=== PATIENT | male | born 1990 | race Caucasian/White ===

== ENCOUNTER 2019-03-22 17:44 | Outpatient (CLI) | payer MEDICAID, SELFPAY ==
[2019-03-22 18:50] LABS: BUN 7 mg/dL (7-18); CREATININE 0.97 mg/dL (0.70-1.30); Calcium 9.3 mg/dL (8.5-10.1); Chloride 104 mmol/L (98-107); Glucose 78 mg/dL (70-100); Potassium 3.8 mmol/L (3.5-5.1); Sodium 142 mmol/L (136-145)
== END 2019-03-22 18:04 ==
PROVIDERS: PCP Nurse Practitioner Family; Visit Provider Nurse Practitioner Family
DX: I10 Essential (primary) hypertension (principal)
CPT/HCPCS: 80048

== ENCOUNTER 2019-09-08 03:20 | Emergency (ER) | payer MEDICAID, SELFPAY ==
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
[2019-09-08 03:18] VITALS: BP 130/83; PULSE 83; RESP 16; TEMP 36.7; O2SAT 96
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
--- NOTE | 2019-09-08 04:30 | NUR.NOTE ---
Plan for DC home,. pt has no ride. Drowsy, arousable to voice. Pt to wait in room until am to obtain ride.
--- NOTE | 2019-09-08 06:42 | NUR.NOTE ---
Pt more alert, provided with baltazar pimentel. sitting up in bed, answering questions.
[2019-09-08] MEDS: Ibuprofen 600 MG TAB PO (06:58)
[2019-09-08] MEDS: Acetaminophen 500 MG TAB 1000 MG PO (06:58)
== END 2019-09-08 07:00 | disposition home or self-care (01) ==
LOC: ER 04:33
PROVIDERS: Emergency Provider Emergency Medicine; PCP Nurse Practitioner Family
DX: S00.83XA Contusion of other part of head, initial encounter (principal); Y08.02XA Assault by strike by baseball bat, initial encounter; S71.132A Puncture wound without foreign body, left thigh, initial encounter; X99.8XXA Assault by other sharp object, initial encounter; Y07.04 Female partner, perpetrator of maltreatment and neglect; I10 Essential (primary) hypertension
CPT/HCPCS: 90471; 99284; 70450

== ENCOUNTER 2020-07-16 02:31 | Emergency (ER) | payer MEDICAID, SELFPAY ==
[2020-07-16 02:33] VITALS: BP 130/85; PULSE 70; RESP 18; TEMP 36.4; O2SAT 95
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
== END 2020-07-16 03:40 | disposition home or self-care (01) ==
PROVIDERS: Emergency Provider Student in an Organized Health Care Education/Training Program; PCP Nurse Practitioner Family
DX: S51.811A Laceration without foreign body of right forearm, initial encounter (principal); W26.8XXA Contact with other sharp object(s), not elsewhere classified, initial encounter; I10 Essential (primary) hypertension
CPT/HCPCS: 12001